=== PATIENT | female | born 1980 | race American Indian/Alaskan Native ===

== ENCOUNTER 2017-02-02 19:07 | Emergency (ER) | payer SELFPAY ==
[2017-02-02 19:20] VITALS: BP 112/81
--- NOTE | 2017-02-02 22:02 | Emergency Department Report ---
ED ENT HPI - General Chief complaint: Dental/Oral Stated complaint: ABSCESS ON CHEEK,THROAT Time Seen by Provider: 02/02/17 21:57 Source: patient Mode of arrival: Ambulatory Limitations: No Limitations - History of Present Illness Initial comments: 36 [place] female comes concern of abscessed tooth in the lower right side. Patient reports she was seen by dental clinic and was told to have the infection treated and they will be able to be seen for extraction. Infection came back 2-4 days ago and patient is non-irritated her throat as well. MD complaint: tooth pain -: days(s) (3-4), week(s) Location: tooth # 1 - 32, 31, 17 Severity scale (0 -10): 7 Quality: aching Consistency: constant Improves with: NSAID Worsens with: none Associated Symptoms: gum swelling, toothache, sore throat - Related Data Previous Rx's Medication Instructions Recorded Last Taken Type Amoxicillin [Trimox CAP] 500 mg PO Q8H #30 capsule 02/23/14 Unknown Rx HYDROcodone/APAP 7.5-325 [[place] 1 each PO Q4-6H PRN #16 tablet 02/23/14 Unknown Rx 7.5-325 mg TAB] predniSONE [Deltasone] 20 mg PO BID #6 tab 02/23/14 Unknown Rx Cyclobenzaprine [Flexeril 10mg] 10 mg PO TID PRN #30 tablet 04/21/14 Unknown Rx HYDROcodone/ACETAMINOPHEN [[place] 1 each PO Q6HR #20 tablet 04/21/14 Unknown Rx 5/325 Tablet] Clindamycin [Clindamycin CAP] 300 mg PO Q8H #30 cap 02/02/17 Unknown Rx Ibuprofen [Motrin 800 MG tab] 800 mg PO Q8HR PRN #30 tablet 02/02/17 Unknown Rx Allergies Allergy/AdvReac Type Severity Reaction Status Date / Time aspirin AdvReac Hives Verified 02/23/14 07:29 ED Dental HPI - General Chief complaint: Dental/Oral Stated complaint: ABSCESS ON CHEEK,THROAT Time Seen by Provider: 02/02/17 21:57 Source: patient Mode of arrival: Ambulatory Limitations: No Limitations - Related Data Previous Rx's Medication Instructions Recorded Last Taken Type Amoxicillin [Trimox CAP] 500 mg PO Q8H #30 capsule 02/23/14 Unknown Rx HYDROcodone/APAP 7.5-325 [[place] 1 each PO Q4-6H PRN #16 tablet 02/23/14 Unknown Rx 7.5-325 mg TAB] predniSONE [Deltasone] 20 mg PO BID #6 tab 02/23/14 Unknown Rx Cyclobenzaprine [Flexeril 10mg] 10 mg PO TID PRN #30 tablet 04/21/14 Unknown Rx HYDROcodone/ACETAMINOPHEN [[place] 1 each PO Q6HR #20 tablet 04/21/14 Unknown Rx 5/325 Tablet] Clindamycin [Clindamycin CAP] 300 mg PO Q8H #30 cap 02/02/17 Unknown Rx Ibuprofen [Motrin 800 MG tab] 800 mg PO Q8HR PRN #30 tablet 02/02/17 Unknown Rx Allergies Allergy/AdvReac Type Severity Reaction Status Date / Time aspirin AdvReac Hives Verified 02/23/14 07:29 ED Review of Systems ROS: Stated complaint: ABSCESS ON CHEEK,THROAT Other details as noted in HPI Constitutional: no symptoms reported. denies: chills, fever ENT: throat pain, dental pain ED Past Medical Hx - Past Medical History Previous Medical History?: No Additional medical history: denies - Surgical History Past Surgical History?: No - Social History Smoking Status: Never Smoker Substance Use Type: None - Medications Home Medications: Home Medications Medication Instructions Recorded Confirmed Last Taken Type Amoxicillin [Trimox CAP] 500 mg PO Q8H #30 capsule 02/23/14 Unknown Rx HYDROcodone/APAP 7.5-325 [[place] 1 each PO Q4-6H PRN #16 tablet 02/23/14 Unknown Rx 7.5-325 mg TAB] predniSONE [Deltasone] 20 mg PO BID #6 tab 02/23/14 Unknown Rx Cyclobenzaprine [Flexeril 10mg] 10 mg PO TID PRN #30 tablet 04/21/14 Unknown Rx HYDROcodone/ACETAMINOPHEN [[place] 1 each PO Q6HR #20 tablet 04/21/14 Unknown Rx 5/325 Tablet] Clindamycin [Clindamycin CAP] 300 mg PO Q8H #30 cap 02/02/17 Unknown Rx Ibuprofen [Motrin 800 MG tab] 800 mg PO Q8HR PRN #30 tablet 02/02/17 Unknown Rx ED Physical Exam - General Limitations: No Limitations - Head Head exam: Present: atraumatic, normocephalic - Eye Eye exam: Present: normal appearance, EOMI - ENT ENT exam: Present: normal exam, mucous membranes moist, TM's normal bilaterally - Expanded ENT Exam Expanded Teeth exam: Present: dental caries, fractured tooth # (21,31,17) Throat exam: Positive: normal inspection ED Course Vital Signs 02/02/17 19:16 Temperature 98.1 F Pulse Rate 82 Respiratory 18 Rate Blood Pressure 112/81 O2 Sat by Pulse 100 Oximetry ED Medical Decision Making - Medical Decision Making Patient's been evaluated by this provider fast rate. Discussed the patient I will place her antibiotics and ibuprofen. Discussed with her that if. Point for follow-up with a dentist. Patient verbalized understanding. Critical care attestation.: If time is entered above; I have spent that time in minutes in the direct care of this critically ill patient, excluding procedure time. ED Disposition Clinical Impression: Tooth abscess Disposition: DISCHARGED TO HOME OR SELFCARE Is pt being admited?: No Does the pt Need Aspirin: No Condition: Stable Instructions: Dental Abscess (ED) Prescriptions: Clindamycin [Clindamycin CAP] 300 mg PO Q8H #30 cap Ibuprofen [Motrin 800 MG tab] 800 mg PO Q8HR PRN #30 tablet PRN Reason: Pain Referrals: PRIMARY CARE, [Primary Care Provider] - 3-5 Days [facility] [Outside] - 3-5 Days [facility] [Outside] - 3-5 Days Forms: Work/School Release Form(ED)
[2017-02-02] MEDS ORDERED: MOTRIN PO ONE (22:05)
== END 2017-02-02 22:25 | disposition home or self-care (01) ==
LOC: ED 19:07
DX: K04.7 Periapical abscess without sinus (principal)
CPT/HCPCS: 99282